=== PATIENT | male | born 1995 | race African-American/Black ===

== ENCOUNTER 2021-11-03 20:26 | Emergency (ER) | payer OTHER | END 2021-11-03 22:48 | disposition home or self-care (01) | LOC: FER 20:26 | DX: S01.81XA Laceration without foreign body of other part of head, initial encounter (principal); Z88.0 Allergy status to penicillin; Z88.6 Allergy status to analgesic agent; V49.40XA Driver injured in collision with unspecified motor vehicles in traffic accident, initial encounter ==